=== PATIENT | female | born 1990 | race Caucasian/White ===

== ENCOUNTER 2021-02-11 20:35 | Emergency (ER) | payer OTHER ==
[2021-02-11 22:25] LABS: BASOPHIL 0.7 % (0-2); EOSINOPHIL 1.3 % (0-5); HCT 41.5 % (37.0-47.0); HGB 13.4 g/dl (12.5-16.0); LYMPHOCYTE 26.9 % (15-48); MCH 28.3 pg (25.0-31.0); MCHC 32.3 g/dL (32.0-36.0); MCV 87.6 fL (78.0-100.0); MPV 11.7 fL (6.0-9.5); NEUTROPHIL 63.8 % (41-80); NRBC 0; PLT 298 K/uL (150-400); RBC 4.74 M/uL (4.20-5.40); RDW 13.2 % (11.5-14.0); WBC 10.5 K/uL (4.0-10.5)
[2021-02-11 22:45] LABS: ALBUMIN 3.6 g/dL (3.4-5.0); BILIRUBIN - TOTAL 0.3 mg/dL (0.2-1.0); BUN/CREAT RATIO (CALC) 9.5 RATIO; CREATININE 0.74 mg/dL (0.51-0.95); GLOBULIN (CALCULATION) 3.7 g/dL; POTASSIUM 3.4 mmol/L (3.5-5.1); TOTAL PROTEIN 7.3 g/dL (6.4-8.2)
[2021-02-12] MEDS ORDERED: BENTYL10 MG PO (00:52)
[2021-02-12] MEDS ORDERED: GOLYTELY SOLU4000 ML PO (00:52)
[2021-02-12] MEDS ORDERED: ONDANSETRON ODT4 MG SL (00:57)
[2021-02-12] MEDS ORDERED: AUGMENTIN 875-1 EACH PO (01:01)
== END 2021-02-12 01:10 | disposition home or self-care (01) ==
LOC: FER 20:35
PROVIDERS: Internal Medicine
DX: K59.00 Constipation, unspecified (principal); K52.9 Noninfective gastroenteritis and colitis, unspecified
CPT/HCPCS: 36415; 80053; 85025